=== PATIENT | female | born 1960 | race Caucasian/White ===

== ENCOUNTER → 2016-09-10 | Outpatient (CLI) | payer OTHER ==
[2016-09-10 09:14] LABS: Basophils # (auto) 0 uL; Basophils % (auto) 0.4 % (0.0-2.0); Eosinophils # (auto) 0.2 uL; Eosinophils % (auto) 5.1 % (0.0-7.0); Hematocrit 41.9 % (36.0-46.0); Hemoglobin 13.9 g/dL (12.2-16.2); Lymphocytes # (auto) 1.5 uL; Lymphocytes % (auto) 35.7 % (10.0-50.0); Mean Corpuscular Hemoglobin 29.7 pg (28.0-32.0); Mean Corpuscular Hgb Conc. 33.3 g/dL (32.0-36.0); Mean Corpuscular Volume 89.2 fL (80.0-100.0); Mean Platelet Volume 7.5 fL (7.4-10.4); Monocytes # (auto) 0.3 uL; Monocytes % (auto) 6.7 % (0.0-12.0); Neutrophils # (auto) 2.1 uL; Neutrophils % (auto) 52.1 % (37.0-80.0); Platelet Count (auto) 354 10^3/uL (140-450); Red Cell Distribution Width 13.8 % (11.6-16.0); White Blood Cell 4.1 10^3/uL (4.4-10.8)
[2016-09-10 09:36] LABS: BUN/Creatinine Ratio 18.8; Bilirubin, Total 0.8 mg/dL (0.2-1.0); Calcium 8.9 mg/dL (8.5-10.1); Potassium 3.8 mmol/L (3.5-5.1); Total Protein 7.8 g/dL (6.4-8.2)
== END | disposition home or self-care (01) ==
LOC: LAB 08:02
PROVIDERS: ATTEND Internal Medicine
DX: I10 Essential (primary) hypertension (principal); J30.9 Allergic rhinitis, unspecified; Z12.11 Encounter for screening for malignant neoplasm of colon
CPT/HCPCS: 36415; 80053; 80061; 84480; 85025

== ENCOUNTER → 2016-09-11 | Outpatient (CLI) | payer OTHER ==
[2016-09-11 13:44] LABS: Urine RBC None Seen /hpf (0 - 4)
[2016-09-11 14:02] LABS: Urine Bilirubin Negative (Negative); Urine Blood Negative /uL (Negative); Urine Color Yellow (Yellow); Urine Glucose Normal (Normal); Urine Ketone Negative (Negative); Urine Nitrite Negative (Negative); Urine Squamous Epithelial Cell FEW /hpf (<5); Urine Urobilinogen Normal (Negative); Urine pH 5.5 (5.0-8.0)
== END | disposition home or self-care (01) ==
LOC: LAB 13:14
PROVIDERS: ATTEND Internal Medicine
DX: J06.9 Acute upper respiratory infection, unspecified (principal)
CPT/HCPCS: 81001

== ENCOUNTER → 2016-09-19 | Outpatient (CLI) | payer OTHER | END | disposition home or self-care (01) | LOC: LAB 10:24 | PROVIDERS: ATTEND Internal Medicine | DX: I10 Essential (primary) hypertension (principal); J30.9 Allergic rhinitis, unspecified; Z12.11 Encounter for screening for malignant neoplasm of colon | CPT/HCPCS: 82270 ==